=== PATIENT | female | born 2000 | race Caucasian/White ===

== ENCOUNTER 2023-12-13 12:57 | Emergency (ER) | payer OTHER, SELFPAY ==
[2023-12-13 13:07] VITALS: BP 119/74; PULSE 65; RESP 17; TEMP 36.8; O2SAT 100
[2023-12-13 14:33] LABS: Appearance Urine Clear (Clear); Bilirubin Urine Negative (Negative); Blood Urine Negative (Negative); Color Urine Yellow (Yellow); Glucose Urine UA Negative (Negative); Ketones Urine Negative (Negative); Leukocyte Esterase Ur Negative LEU/UL (Negative); Nitrate Urine Negative (Negative); Protein Urine Negative (Negative); Specific Grav Ur 1.009 (1.001-1.035); Urobilinogen Urine 0.2 mg/dL (<2.0); pH Urine 5.5 (5.0-9.0)
[2023-12-13 14:36] LABS: Add Urine Microscopic? NO
[2023-12-13 15:06] LABS: Basophils Percent Auto 0.4 % (0.2-1.2); Eosinophils Absolute Auto 0.1 K/mm3 (0-0.3); Eosinophils Percent Auto 1.4 % (0-4.4); Hemoglobin 13.9 g/dL (12.0-15.0); Immature Granulocyte Absolute 0.03 K/mm3 (0.00-0.031); Immature Granulocyte Percent A 0.4 % (0-0.5); Lymphocytes Absolute Auto 1.22 K/mm3 (0.9-3.2); Lymphocytes Percent Auto 16.8 % (18.3-44.2); Mean Corpuscular HGB Conc 33.9 g/dl (32-36); Mean Corpuscular Hemoglobin 30.7 pg (26-34); Mean Corpuscular Volume 90.5 fl (80-100); Mean Platelet Volume 9.6 fl (7.4-10.4); Monocytes Absolute Auto 0.6 K/mm3 (0.1-0.6); Monocytes Percent Auto 8.5 % (2.6-8.5); Neutrophils Absolute Auto 5.3 K/mm3 (1.3-6.7); Neutrophils Percent Auto 72.5 % (45.5-73.1); Platelet Count Result 189 k/mm3 (150-375); Red Blood Count 4.53 M/mm3 (4.2-5.4); Red Cell Distribution Width 13.1 % (11.5-14.5); White Blood Count 7.3 K/mm3 (4.5-10.0)
[2023-12-13 15:17] LABS: Alanine Aminotransferase 15 U/L (6-35); Albumin Level 4.9 g/dL (3.5-5.1); Alkaline Phosphatase 80 U/L (38-126); Anion Gap 8 mmol/L (4-12); Aspartate Amino Transferase 25 U/L (14-36); Bilirubin,Total 0.5 mg/dL (0.2-1.3); Blood Urea Nitrogen 13 mg/dL (7-17); Calcium 9.9 mg/dL (8.4-10.2); Carbon Dioxide 28 mmol/L (22-30); Chloride 106 mmol/L (98-107); Estimated CRCL calculation 62 ml/min; Estimated Glomerular Filt Rate > 60; Glucose 84 mg/dL (65-110); Potassium 4.1 mmol/L (3.4-5.0); Sodium 142 mmol/L (137-145)
[2023-12-13 15:18] LABS: Lactic Acid Reflex 1.2 mmol/L (0.7-2.0)
[2023-12-13 15:36] VITALS: BP 104/72; PULSE 60; RESP 18; O2SAT 100
--- NOTE | 2023-12-13 15:59 | ED.GENADULT ---
HPI - General Adult General Chief complaint: Skin/Abscess/Foreign Body Stated complaint: foreign body Time Seen by Provider: 12/13/23 13:22 History of Present Illness HPI narrative: Rai Talamantes is a 23 y/o female who presents today with concern that shge might of left a tampon in and she can't get it out. She reports of some suprapubic pain no fevers/chills/ no nausea/vomiting/ She reports maybe a little pain with urination and she noticed some ricardo vaginal d/c Related Data Allergies Allergy/AdvReac Type Severity Reaction Status Date / Time Sulfa (Sulfonamide Allergy Rash Verified 12/13/23 13:08 Antibiotics) Review of Systems Review of Systems: All systems reviewed & are unremarkable except as noted in HPI and below Exam Narrative: GENERAL: Well-appearing, well-nourished, and in no acute distress. HEAD: Normocephalic, atraumatic. EYES: PERRLA and EOMI. ENT: Nares clear, no rhinorrhea or epistaxis. Mucous membranes moist. Oropharynx without tonsillar hypertrophy exudate or other lesions. NECK: Supple. No adenopathy or masses. No carotid bruits or JVD CHEST: Clear to auscultation. No respiratory distress. No wheezes rales or rhonchi HEART: Regular rate and rhythm. No murmur heard. Normal peripheral pulses. ABDOMEN: Soft, nondistended, normal active bowel sounds. + suprapubic pain with palpation EXTREMITIES: Normal range of motion. No edema. SKIN: Warm, dry, no rash. NEURO: No focal deficits. Alert and oriented x3. PSYCH: Normal mood and affect. Course Vital Signs Vital signs: Vital Signs Temperature 36.8 C 12/13/23 13:07 Pulse Rate 65 12/13/23 13:07 Respiratory Rate 17 12/13/23 13:07 Blood Pressure 119/74 12/13/23 13:07 Pulse Oximetry 100 12/13/23 13:07 Temperature 36.8 C 12/13/23 13:07 Pulse Rate 60 12/13/23 15:36 Respiratory Rate 18 12/13/23 15:36 Blood Pressure 104/72 12/13/23 15:36 Pulse Oximetry 100 12/13/23 15:36 Medical Decision Making [facility] Narrative Medical decision making narrative: 23 y/o female who presents with reports of having a tampon left in for at the longest 3 days. Pelvic exam completed with TASHA Rodriguez for systems security analyst, Brown malodorous tampon removed.- Cervix inflamed/ bleeding / dried / flattened With the amount malodorous and suprapubic pain on exam decided to check blood work to r/o toxic shock/ sepsis CBC- within normal no leukocytosis CP- within normal UA - within normal urine preg- Negative GC swabs - pending BV- pending Discussed pt 's case with OB solution design and analysis manager Dr. Briones who recommends starting Flagyl BID / Doxy BID For one week and she can follow up wtih them Patient agrees with plan and all questions answered Medical Records Medical records reviewed: Yes I reviewed the external patient's medical records. Vital Signs Vital Signs: Vital Signs Temperature 36.8 C 12/13/23 13:07 Pulse Rate 65 12/13/23 13:07 Respiratory Rate 17 12/13/23 13:07 Blood Pressure 119/74 12/13/23 13:07 Pulse Oximetry 100 12/13/23 13:07 Temperature 36.8 C 12/13/23 13:07 Pulse Rate 60 12/13/23 15:36 Respiratory Rate 18 12/13/23 15:36 Blood Pressure 104/72 12/13/23 15:36 Pulse Oximetry 100 12/13/23 15:36 Vitals reviewed by me. Lab Data Lab results reviewed: Yes I reviewed the patient's lab results. 12/13/23 14:56 12/13/23 14:56 Labs: Lab Results 12/13/23 12/13/23 Range/Units 14:25 14:56 WBC 7.3 (4.5-10.0) K/mm3 RBC 4.53 (4.2-5.4) M/mm3 Hgb 13.9 (12.0-15.0) g/dL Hct 41.0 (37.0-47.0) % MCV 90.5 (80-100) fl MCH 30.7 (26-34) pg MCHC 33.9 (32-36) g/dl RDW 13.1 (11.5-14.5) % Plt Count 189 (150-375) k/mm3 MPV 9.6 (7.4-10.4) fl Immature Gran % (Auto) 0.4 (0-0.5) % Neut % (Auto) 72.5 (45.5-73.1) % Lymph % (Auto) 16.8 L (18.3-44.2) % [place] % (Auto) 8.5 (2.6-8.5) % Eos % (Auto) 1.4 (0-4.4) % Baso % (Auto) 0.4
[2023-12-13] MEDS: DOXYCYCLINE HYCLATE 100 MG TABLET PO (16:17)
[2023-12-13] MEDS: metroNIDAZOLE 500 MG TABLET PO (16:18)
[2023-12-13 16:32] LABS: Chlamydia trachomatis NOT DETECTED (NOT DETECTE); Neisseria gonorrhoeae PCR NOT DETECTED (NOT DETECTE)
[2023-12-15 15:18] LABS: Bacterial Vaginosis POSITIVE (NEGATIVE)
== END 2023-12-13 16:22 | disposition home or self-care (01) ==
PROVIDERS: Emergency Provider Nurse Practitioner Family
DX: T19.2XXA Foreign body in vulva and vagina, initial encounter (principal); W44.8XXA Other foreign body entering into or through a natural orifice, initial encounter
CPT/HCPCS: 36415; 80053; 81003; 81025; 81513; 83605; 85025; 87491; 87591; 99284; A9270

== ENCOUNTER 2024-04-16 12:02 | Emergency (ER) | payer OTHER, SELFPAY ==
--- NOTE | 2024-04-16 12:04 | ED.FEMALEGU ---
HPI - Female Genitourinary General Chief complaint: Urogenital-Female Stated complaint: Uti Symptoms Time Seen by Provider: 04/16/24 12:04 Source: patient Mode of arrival: ambulatory Limitations: no limitations History of Present Illness HPI Narrative: Rai is a 23-year-old female patient presenting to the clinic today with complaints of possible UTI. She reports she has had burning with urination and increase in frequency and low urine output. States that this has been going on for the past week. Has taken azo had initially at the beginning of the week and this helped her symptoms however now her symptoms have returned. She reports some lower abdominal discomfort/pressure. No flank pain Related Data Home Medications Medication Instructions Recorded Confirmed dextroamphetamine-amphetamine ER 20 mg PO DAILY 04/16/24 04/16/24 20 mg 24hr capsule,extend release hydroxyzine HCl 25 mg tablet 25 mg PO DAILY 04/16/24 04/16/24 Allergies Allergy/AdvReac Type Severity Reaction Status Date / Time Sulfa (Sulfonamide Allergy Rash Verified 04/16/24 12:12 Antibiotics) Review of Systems Review of Systems: Pertinent positives per HPI. Patient denies any fever, chills, rash, headache, visual changes, dizziness, cough, runny nose, sore throat, shortness of breath, chest pain, palpitations, nausea, vomiting, diarrhea, constipation PMFSH Comments At the time of my signature, I reviewed and agree with the nursing past medical, surgical, social, and family history. There is no relevant family history pertinent to the patient complaint. Exam Narrative: General: Well-developed, well nourished, in no apparent distress. Head: Normocephalic, atraumatic. Cardio: Regular rate and rhythm, s1 and s2 normal, no murmur appreciated. Resp: Clear to auscultation bilaterally, no rhonchi, rales, wheezing or rubs. Abdomen: Soft, pliable, bowel sounds present in all quadrants, tender to palpation over the suprapubic bladder, no organomegly, no CVAT tenderness. Course Course Emergency Course: Portions of this record may have been created with voice recognition software. Level of Care: Express Care Visit Vital Signs Vital signs: Vital Signs Temperature 36.9 C 04/16/24 12:12 Pulse Rate 84 04/16/24 12:12 Respiratory Rate 16 04/16/24 12:12 Blood Pressure 105/77 04/16/24 12:12 Pulse Oximetry 100 04/16/24 12:12 Temperature 36.9 C 04/16/24 12:12 Pulse Rate 84 04/16/24 12:12 Respiratory Rate 16 04/16/24 12:12 Blood Pressure 105/77 04/16/24 12:12 Pulse Oximetry 100 04/16/24 12:12 Vital signs reviewed MDM - Female Genitourinary MDM Narrative Medical decision making narrative: At the time of visit patient is resting comfortably on the exam table. Patient appears to be nontoxic. Labs: Urinalysis positive for blood, protein, and leukocytes. We will send for culture. Plan: I suspect patient has UTI. Prescription for cephalexin was sent to the pharmacy. Supportive measures were discussed with the patient and they voiced understanding discharge instructions and agrees to treatment plan. Return precautions reviewed Differential Diagnosis Differential diagnosis: Likely urinary tract infection and cystitis Lab Data Labs: Lab Results 04/16/24 Range/Units 12:15 POC Urine Color Brown POC Urine Clarity Cloudy POC Urine pH 6.5 POC Ur Specif [place] 1.020 POC Urine Protein 3+ POC Ur Glucose (UA) Negative POC Urine Ketones Negative POC Urine Blood 3+ POC Urine Nitrite Negative POC Urine Bilirubin Negative POC Urine Urobilinogen 1.0 POC U Leukocyte Esteras 3+ Misc Test Comment None Discharge Plan Discharge Clinical Impression: Urinary tract infection Patient Disposition: Home, Self-Care Condition: Stable Instructions: Antibiotic Form, Urinary Tract Infection in Women (ED) Additional Instructions: UA positive for ba
[2024-04-16 12:12] VITALS: BP 105/77; PULSE 84; RESP 16; TEMP 36.9; O2SAT 100
[2024-04-16 12:21] LABS: EDUAAPPEAR Cloudy; EDUABILI Negative; EDUABLOOD 3+; EDUACOLOR1 Brown; EDUAGLUCOSE Negative; EDUAKETONE Negative; EDUALEUKO 3+; EDUANITRATE Negative; EDUAPH 6.5; EDUAPROTEIN 3+
== END 2024-04-16 12:25 | disposition home or self-care (01) ==
PROVIDERS: Emergency Provider Nurse Practitioner Family
DX: N39.0 Urinary tract infection, site not specified (principal)
CPT/HCPCS: 81003; 87086; 87088; 99213; G0463

== ENCOUNTER 2024-07-27 17:26 | Emergency (ER) | payer OTHER, SELFPAY ==
--- NOTE | 2024-07-27 17:35 | ED_ITS ---
HPI - General Adult General Chief complaint: Unspecified Stated complaint: BUMP BEHIND EAR Source: patient Mode of arrival: ambulatory Limitations: no limitations History of Present Illness HPI narrative: 23 y/o female presented for c/o 'bump behind right ear.' First noticed one month ago. Denies pain, warmth, or drainage to the bump. States she does not feel like it is changing size, but says her roommate thinks it is bigger. Denies ear pain, drainage, sore throat, n/v/d/f/c or illness. Has multiple earrings but no piercing prior to the onset. Related Data Home Medications Medication Instructions Recorded Confirmed dextroamphetamine-amphetamine ER 20 mg PO DAILY 04/16/24 07/27/24 20 mg 24hr capsule,extend release hydroxyzine HCl 25 mg tablet 25 mg PO DAILY 04/16/24 07/27/24 Allergies Allergy/AdvReac Type Severity Reaction Status Date / Time Sulfa (Sulfonamide Allergy Rash Verified 07/27/24 17:39 Antibiotics) Review of Systems Review of Systems: CONSTITUTIONAL: Denies malaise, chills, or fever. EYES: Denies visual changes, redness, or discharge. ENT: Denies rhinorrhea, congestion, sinus pain, and sore throat. Reports ear node swelling CARDIOVASCULAR: Denies chest pain, palpitations, or edema. RESPIRATORY: Denies cough or dyspnea. SKIN: Denies rash or itching. MUSCULOSKELETAL: Denies myalgia. NEUROLOGIC: Denies headache. All systems reviewed & are unremarkable except as noted in HPI and below PMFSH Comments At time of signature, agree with nursing past medical, surgical, social and family history. There is no relevant family history pertinent to the presenting complaint Exam Narrative: GENERAL: Well-appearing EYES: PERRLA, conjunctivae clear ENT: Nares clear. Mucous membranes moist. Right posterior auricular node noted, mildly swollen, nontender, no erythema to node or mastoid. TMs pearly schulte with dull light reflex bilaterally; no tragal or mastoid tenderness. Oropharynx not erythematous without lesions. NECK: Supple. No lymphadenopathy CHEST: Clear to auscultation, breath sounds equal. HEART: Regular rate and rhythm. SKIN: Warm, dry, no rash. NEURO: Alert and oriented x3. PSYCH: Normal mood and affect Course Course Emergency Course: Patient is aware of diagnosis, understands and agrees to treatment plan. Anticipatory guidance given. Patient agrees to follow-up as directed and is a sen of reasons to seek care at the emergency department. Portions of this record may have been created with voice recognition software Level of Care: Express Care Visit Vital Signs Vital signs: Reviewed Medical Decision Making MDM Narrative Medical decision making narrative: Discussed physical exam findings c/w post auricular lymphadenopathy. Advised supportive measures and signs/symptoms to go to the ER. Patient is appropriate for outpatient treatment and follow-up. Differential Diagnosis Differential Diagnosis: Bacterial lymphadenitis, reactive adenitis, cellulitis, parotitis, lymphangitis, strep pharyngitis, OM, dental infection, lymphoma cat scratch disease? Discharge Plan Discharge Clinical Impression: Subcutaneous nodule of head Patient Disposition: Home, Self-Care Condition: Stable Instructions: Antibiotic Form, Lymphadenopathy (ED) Additional Instructions: Swollen lymph node behind the ear can be caused by Infection, allergic reaction, dental issue, dehydration and other conditions Monitor the site You should go to the ER if the swelling:? * Is accompanied by redness, pain, or drainage? * Is accompanied by other unexplained symptoms like fever, night sweats, or weight loss Follow up with your primary care provider as needed in 1 week Go to the ER for worsening symptoms or concerns? Prescriptions: No Action dextroamphetamine-amphetamine 20 mg capsule,extended release 24hr 20 mg PO DAILY hydroxyzine HCl 25 mg tablet 25 mg PO DAILY cephalexin 500 mg capsule 500 mg PO Q12H 7 Days Qty: 14 0RF Follow-up/Referrals: UNKNOWN,DOCTOR [Primary Care Provider] - Time of Disposition: 17:53
[2024-07-27 17:37] VITALS: BP 117/84; PULSE 89; RESP 16; TEMP 36.8; O2SAT 100
== END 2024-07-27 17:54 | disposition home or self-care (01) ==
PROVIDERS: Emergency Provider Nurse Practitioner Family
DX: R22.0 Localized swelling, mass and lump, head (principal)
CPT/HCPCS: 99212; G0463

== ENCOUNTER 2024-08-04 12:21 | Outpatient (CLI) | payer OTHER, SELFPAY ==
[2024-08-04 12:44] LABS: Basophils Absolute Auto 0.1 K/mm3 (0.0-0.1); Basophils Percent Auto 0.6 % (0.2-1.2); Eosinophils Absolute Auto 0.1 K/mm3 (0-0.3); Eosinophils Percent Auto 1.1 % (0-4.4); Hematocrit 42.2 % (37.0-47.0); Hemoglobin 14.2 g/dL (12.0-15.0); Immature Granulocyte Absolute 0.04 K/mm3 (0.00-0.031); Immature Granulocyte Percent A 0.5 % (0-0.5); Lymphocytes Absolute Auto 1.07 K/mm3 (0.9-3.2); Lymphocytes Percent Auto 12.8 % (18.3-44.2); Mean Corpuscular HGB Conc 33.6 g/dl (32-36); Mean Corpuscular Hemoglobin 30.7 pg (26-34); Mean Corpuscular Volume 91.3 fl (80-100); Mean Platelet Volume 9.5 fl (7.4-10.4); Monocytes Absolute Auto 0.4 K/mm3 (0.1-0.6); Monocytes Percent Auto 4.9 % (2.6-8.5); Neutrophils Absolute Auto 6.7 K/mm3 (1.3-6.7); Neutrophils Percent Auto 80.1 % (45.5-73.1); Platelet Count Result 229 k/mm3 (150-375); Red Blood Count 4.62 M/mm3 (4.2-5.4); Red Cell Distribution Width 13.4 % (11.5-14.5); White Blood Count 8.4 K/mm3 (4.5-10.0)
[2024-08-04 12:55] LABS: Alanine Aminotransferase 13 U/L (6-35); Albumin Level 4.8 g/dL (3.5-5.1); Alkaline Phosphatase 72 U/L (38-126); Anion Gap 4 mmol/L (4-12); Aspartate Amino Transferase 22 U/L (14-36); Bilirubin,Total 0.7 mg/dL (0.2-1.3); Blood Urea Nitrogen 8 mg/dL (7-17); Calcium 9.7 mg/dL (8.4-10.2); Carbon Dioxide 30 mmol/L (22-30); Chloride 106 mmol/L (98-107); Estimated Glomerular Filt Rate > 60; Glucose 124 mg/dL (65-110); Potassium 3.8 mmol/L (3.4-5.0); Sodium 140 mmol/L (137-145)
== END 2024-08-04 12:22 | disposition home or self-care (01) ==
LOC: ANHLAB 12:22
PROVIDERS: Visit Provider Family Medicine
DX: R61 Generalized hyperhidrosis (principal)
CPT/HCPCS: 36415; 80053; 84443; 85025

== ENCOUNTER 2024-08-08 13:41 | Outpatient (CLI) | payer OTHER, SELFPAY ==
--- NOTE | ~2024-08-08 | US_ITS ---
EXAMINATION: US soft tissue head and neck DATE: 08/08/2024 13:54 INDICATION: Enlarged lymph nodes, unspecified. Lump posterior to right ear. TECHNIQUE: Multiple grayscale and Doppler ultrasound images of the head and neck were obtained. COMPARISON: None FINDINGS: There are normal superficial lymph nodes posterior to right ear. IMPRESSION: 1. No abnormal mass or lymphadenopathy. Reviewed, dictated and finalized at location A. ING SUPERVISOR
== END 2024-08-08 13:42 | disposition home or self-care (01) ==
PROVIDERS: PCP Family Medicine; Visit Provider Family Medicine
DX: R59.0 Localized enlarged lymph nodes (principal)
CPT/HCPCS: 76536

== ENCOUNTER 2024-08-25 18:59 | Emergency (ER) | payer OTHER, SELFPAY ==
[2024-08-25 19:08] VITALS: BP 110/63; PULSE 59; RESP 16; TEMP 36.6; O2SAT 100
--- NOTE | 2024-08-25 19:10 | ED_ITS ---
HPI - Female Genitourinary General Chief complaint: Urogenital-Female Stated complaint: uti symptoms Source: patient and RN notes reviewed Mode of arrival: ambulatory Limitations: no limitations History of Present Illness HPI Narrative: 23 y/o female presented for c/o burning and frequency x2 days. Denies hematuria, nausea, vomiting, abdominal pain, flank pain, constipation, diarrhea, fevers or chills. Denies concern for STD or . She has an IUD. Related Data Home Medications ?Medication ?Instructions ?Recorded ?Confirmed ?Last Taken ?Type dextroamphetamine-amphetamine ER 20 mg PO DAILY 04/16/24 08/03/24 Unknown History 20 mg 24hr capsule,extend release dextroamphetamine-amphetamine 10 10 mg PO .PRN PRN 08/03/24 08/03/24 Unknown History mg tablet hydroxyzine HCl 10 mg tablet 10 mg PO ONCE PRN 08/03/24 08/03/24 Unknown History Allergies Allergy/AdvReac Type Severity Reaction Status Date / Time Sulfa (Sulfonamide Allergy Rash Verified 08/25/24 19:11 Antibiotics) Review of Systems Review of Systems: CONSTITUTIONAL: Denies body aches, fever, chills, or sweats. CARDIOVASCULAR: Denies chest pain, palpitations, or edema. RESPIRATORY: Denies cough or dyspnea. GASTROINTESTINAL: Denies abdominal pain, nausea, vomiting, or diarrhea. GENITOURINARY: Reports dysuria, frequency, denies urgency, hematuria, flank pain MUSCULOSKELETAL: Denies back pain or myalgia. [facility] Surgical History Surgical History H/O rhinoplasty Family History Family History Sibling Depression Anxiety Social History Social History Smoking status: Never smoker Alcohol intake: current Drinks per week: 7 Alcohol use details: 5-7 per week Substance use: never Do You Feel Safe in your Home?: Yes Lack of Transportation: No Lack of Food: Never True Current Housing: I Have Housing Concerned About Future Housing: No Difficulty Paying Gas/Electric Bills: No Difficulty Paying for Meds: No Currently Unemployed: No Education: High School Diploma/GED Difficulty w/ Childcare or Family Care: No Occupation/Education: student Comments At time of signature, I have reviewed and agree with nursing past medical, surgical, social and family history unless otherwise noted. Please see nursing chart for further information. There is no relevant family history pertinent to the presenting complaint Exam Narrative: GENERAL: Well-appearing ENT: Mucous membranes pink and moist. NECK: Normal AROM. Supple. CHEST: No respiratory distress. Clear to auscultation. HEART: Regular rate and rhythm. ABDOMEN: Soft, nontender, nondistended, normal active bowel sounds. No CVA tenderness SKIN: Warm, dry, no rash. NEURO: Alert and oriented x3. PSYCH: Normal affect. Course Course Emergency Course: Patient is aware of diagnosis, understands and agrees to treatment plan. Anticipatory guidance given. Patient agrees to follow-up as directed and is aware of reasons to seek care at the emergency department. Portions of this record may have been created with voice recognition software Level of Care: Express Care Visit Vital Signs Vital signs: Vital Signs Temperature 97.8 F 08/25/24 19:08 Pulse Rate 59 L 08/25/24 19:08 Respiratory Rate 16 08/25/24 19:08 Blood Pressure 110/63 08/25/24 19:08 Pulse Oximetry 100 08/25/24 19:08 Temperature 97.8 F 08/25/24 19:08 Pulse Rate 59 L 08/25/24 19:08 Respiratory Rate 16 08/25/24 19:08 Blood Pressure 110/63 08/25/24 19:08 Pulse Oximetry 100 08/25/24 19:08 Reviewed MDM - Female Genitourinary MDM Narrative Medical decision making narrative: Discussed physical exam findings and urine. Advised supportive measures and signs/symptoms to go to the ER. Pt is appropriate for outpt treatment and f/u. Differential Diagnosis Differential diagnosis: Likely urinary tract infection, cystitis and other Discharge Plan Discharge Clinical Impression: Urinary tract infection Patient Disposition: Home, Self-Care Condition: Stable Instructions: Antibiotic Form, Urinary Tract Infection in Women (ED) Additional Instructions: Take the antibiotic as prescribed The urine will be sent of for a culture to identify what type of bacteria is causing your infection. If the culture shows that the antibiotic will not get rid of your infection, you will be notified and a new antibiotic will be called in for you. Increase water intake you will need to follow up with your PCP, call to schedule an appointment. Go to the ER for any worsening symptoms or concerns Patient Language: Hebrew Prescriptions: New nitrofurantoin monohyd/m-cryst [Macrobid] 100 mg capsule 100 mg PO Q12H 5 Days Qty: 10 0RF Rx Instructions: must administer with a meal/food No Action dextroamphetamine-amphetamine 20 mg capsule,extended release 24hr 20 mg PO DAILY dextroamphetamine-amphetamine 10 mg tablet 10 mg PO .PRN PRN hydroxyzine HCl 10 mg tablet 10 mg PO ONCE PRN Follow-up/Referrals: Humberto Polk DO [Primary Care Provider] - Time of Disposition: 19:19
[2024-08-25 19:17] LABS: EDUAAPPEAR Cloudy; EDUABILI Negative (Negative); EDUABLOOD 3+ (Negative); EDUACOLOR1 Light/Pale; EDUAGLUCOSE Negative (Negative); EDUAKETONE Negative (Negative); EDUALEUKO 2+ (Negative); EDUANITRATE Negative (Negative); EDUAPROTEIN Negative (Negative); EDUASPGRAVITY 1.005; EDUAUROBILI 0.2
== END 2024-08-25 19:20 | disposition home or self-care (01) ==
PROVIDERS: Emergency Provider Nurse Practitioner Family; PCP Family Medicine
DX: N39.0 Urinary tract infection, site not specified (principal)
CPT/HCPCS: 81003; 87086; 99213; G0463

== ENCOUNTER 2024-10-26 08:13 | Emergency (ER) | payer OTHER, SELFPAY ==
--- NOTE | ~2024-10-26 | XR_ITS ---
EXAMINATION: XR ankle LT min 3V DATE: 10/26/2024 08:53 INDICATION: Lateral left ankle pain and swelling. Injury. TECHNIQUE: 4 views of left ankle were obtained. COMPARISON: None. FINDINGS: Alignment is normal. No fracture. Joint spaces are normal. IMPRESSION: 1. Normal left ankle. Reviewed, dictated and finalized at location [] CTOR SURGICAL IMPRESSION: 1. Normal left ankle.
--- NOTE | 2024-10-26 08:17 | ED.LOWEXIN ---
HPI - Extremity Injury (Lower) General Chief Complaint: Extremity Injury, Lower Stated Complaint: INJURED L ANKLE Source: patient and RN notes reviewed Mode of arrival: ambulatory Limitations: no limitations History of Present Illness HPI Narrative: Patient is a 24-year-old female who presents to the [facility] with complaints of left lateral ankle pain. Patient states that she was walking her dog on Thursday when she accidentally rolled the ankle. She reports tenderness to the lateral aspect of the left ankle. There is no obvious swelling or deformity. Sensation is intact and she denies numbness. She is neurovascularly intact distally. Related Data Home Medications ?Medication ?Instructions ?Recorded ?Confirmed ?Last Taken ?Type hydroxyzine HCl 10 mg tablet 10 mg PO ONCE PRN 08/03/24 09/20/24 Unknown History Allergies Allergy/AdvReac Type Severity Reaction Status Date / Time Sulfa (Sulfonamide Allergy Rash Verified 10/26/24 08:39 Antibiotics) Review of Systems Review of Systems: CONSTITUTIONAL: Denies fever, chills, or sweats. EYES: Denies visual changes, redness, or discharge. ENT: Denies otalgia and sore throat CARDIOVASCULAR: Denies chest pain, palpitations, or edema. RESPIRATORY: Denies cough or dyspnea. GASTROINTESTINAL: Denies abdominal pain, nausea, vomiting, or diarrhea. GENITOURINARY: Denies dysuria or hematuria. SKIN: Denies rash or itching. MUSCULOSKELETAL: Reports left ankle pain. NEUROLOGIC: Denies headache, numbness, or weakness. Pertinent positives per HPI. [facility] Past Medical History Medical History Controlled substance agreement signed Adderall for ADHD. Signed 08/2024. ADHD Surgical History Surgical History H/O rhinoplasty Family History Family History Sibling Depression Anxiety Social History Social History Smoking status: Never smoker Alcohol intake: current Drinks per week: 7 Alcohol use details: 5-7 per week Substance use: never Do You Feel Safe in your Home?: Yes Lack of Transportation: No Lack of Food: Never True Current Housing: I Have Housing Concerned About Future Housing: No Difficulty Paying Gas/Electric Bills: No Difficulty Paying for Meds: No Currently Unemployed: No Education: High School Diploma/GED Difficulty w/ Childcare or Family Care: No Occupation/Education: student Comments At the time of my signature, I reviewed and agree with the nursing past medical, surgical, social, and family history. There is no relevant family history pertinent to the patient complaint. Exam Narrative: GENERAL: This is a well-nourished, well-developed patient, in no apparent distress. HEAD: normocephalic, atraumatic. EYES: PERRL. Sclera clear/white. Vision is grossly intact. EARS: External ears normal, auditory canals clear and without drainage, TMs normal without perforation. Hearing grossly intact. NOSE: External nose normal with no obvious nasal discharge, nares without redness, no rhinorrhea. THROAT: Mucous membranes moist, posterior pharynx clear. NECK: Neck supple, non-tender without lymphadenopathy, masses or thyromegaly. CARDIOVASCULAR: Regular rate and rhythm without murmurs, gallops, or rubs. RESPIRATORY: Clear to auscultation. Breath sounds equal bilaterally. No wheezes, rales, or rhonchi. GASTROINTESTINAL: Abdomen soft, non-tender, nondistended. Bowel sounds are active. No hepato-splenomegaly, or palpable masses. No guarding. SKIN: warm, intact with no suspicious lesions or rash, good texture and turgor. NEURO: awake, alert, and oriented to person, place and time. There were no obvious focal neurologic abnormalities. EXTREMITIES: No clubbing, cyanosis, or edema. Left lateral ankle tenderness. Distal neuro and motor status intact. Cap refill normal. Pulses normal. BACK: Nontender without deformity or crepitance. No flank tenderness. Course Course Level of Care: Express Care Visit Vital Signs Vital signs: Vital Signs Temperature 98.7 F 10/26/24 08:32 Pulse Rate 90 10/26/24 08:32 Respiratory Rate 16 10/26/24 08:32 Blood Pressure 121/77 10/26/24 08:32 Pulse Oximetry 99 10/26/24 08:32 Oxygen Delivery Room Air 10/26/24 08:32 Temperature 98.7 F 10/26/24 08:32 Pulse Rate 90 10/26/24 08:32 Respiratory Rate 16 10/26/24 08:32 Blood Pressure 121/77 10/26/24 08:32 Pulse Oximetry 99 10/26/24 08:32 Oxygen Delivery Room Air 10/26/24 08:32 Reviewed MDM - Extremity Injury (Lower) MDM Narrative Medical decision making narrative: Use the RICE method at home. May take ibuprofen and/or Tylenol if needed. If symptoms persist in 1 week after conservative treatment, follow-up with specialist. Differential Diagnosis Differential diagnosis: Likely ankle sprain and strain, ankle fracture and other (foot sprain) Imaging Data Attestation: I personally reviewed and interpreted this imaging study as follows: Radiologist's impression: Rapid strep is negative in the office; however we will send to the lab for confirmation; there is a small percentage chance that it can come back positive; if it is, we will call you in 2-3days; and your prescription will be call in to your pharmacy. However, there is NO indication for antibiotic at this time. -Increase your fluids and Vitamin C. -Oral rinses such as: Salt water gargles and/or may use topical anesthetic (eg. Chloraseptic spray) or lozenges to relieve dryness or throat pain. -Take tylenol and ibuprofen as needed for pain and fever as directed. -Frequent hand washing or hand principal technical architect is one of the best ways to prevent spread of infection. -Follow up with primary care provider in 2-3 days if condition is not improving or seek ER visit if your child starts breathing fast/has trouble breathing, is not drinking enough fluids, muffle voice, difficulty opening the mouth or will not wake up or will not interact with you. Critical Care Time Critical Care Time Critical Care Time: No Discharge Plan Discharge Clinical Impression: Left ankle sprain Qualifiers: Encounter type: initial encounter Involved ligament of ankle: unspecified ligament Qualified Code(s): S93.402A - Sprain of unspecified ligament of left ankle, initial encounter Patient Disposition: Home, Self-Care Condition: Stable Instructions: Ankle Sprain (ED), P.R.I.C.E. Treatment (ED) Additional Instructions: Use the RICE method at home. May take ibuprofen and/or Tylenol if needed. If symptoms persist in 1 week after conservative treatment, follow-up with specialist. Patient Language: Portuguese Prescriptions: No Action hydroxyzine HCl 10 mg tablet 10 mg PO ONCE PRN dextroamphetamine-amphetamine 10 mg tablet 10 mg PO DAILY Qty: 30 0RF dextroamphetamine-amphetamine 20 mg capsule,extended release 24hr 20 mg PO QAM Qty: 30 0RF Follow-up/Referrals: Humberto Polk DO [Primary Care Provider] - Time of Disposition: 09:04
[2024-10-26 08:32] VITALS: BP 121/77; PULSE 90; RESP 16; TEMP 37.1; O2SAT 99
== END 2024-10-26 09:05 | disposition home or self-care (01) ==
PROVIDERS: Emergency Provider Nurse Practitioner; PCP Family Medicine
DX: S93.402A Sprain of unspecified ligament of left ankle, initial encounter (principal); X50.0XXA Overexertion from strenuous movement or load, initial encounter; X50.9XXA Other and unspecified overexertion or strenuous movements or postures, initial encounter; Y93.K1 Activity, walking an animal; F90.9 Attention-deficit hyperactivity disorder, unspecified type
CPT/HCPCS: 73610; 99213; G0463

== ENCOUNTER 2025-03-06 10:07 | Emergency (ER) | payer OTHER, SELFPAY ==
[2025-03-06 10:44] VITALS: BP 100/62; PULSE 54; RESP 16; TEMP 36.8; O2SAT 100
[2025-03-06 11:11] LABS: EDUAAPPEAR Clear; EDUABILI Negative (Negative); EDUABLOOD 1+ (Negative); EDUACOLOR1 Light/Pale; EDUAGLUCOSE Negative (Negative); EDUAKETONE Negative (Negative); EDUALEUKO 1+ (Negative); EDUANITRATE Negative (Negative); EDUAPH 5.5; EDUAPROTEIN Negative (Negative); EDUASPGRAVITY 1.005; EDUAUROBILI 0.2
--- NOTE | 2025-03-06 11:15 | ED_ITS ---
HPI - Female Genitourinary General Chief complaint: Urogenital-Female Stated complaint: Uti Symptoms Time Seen by Provider: 03/06/25 11:15 Source: patient, RN notes reviewed and old records reviewed Mode of arrival: ambulatory Limitations: no limitations History of Present Illness HPI Narrative: 24-year-old female presents to the [facility] with urinary frequency, urgency, suprapubic pressure and burning with urination that started this morning, has continued. Patient has an IUD. Denies concerns for . Onset (ago): hour(s) Related Data Home Medications ?Medication ?Instructions ?Recorded ?Confirmed ?Last Taken ?Type hydroxyzine HCl 10 mg tablet 10 mg PO ONCE PRN anxiety 08/03/24 03/06/25 Unknown History Allergies Allergy/AdvReac Type Severity Reaction Status Date / Time Sulfa (Sulfonamide Allergy Rash Verified 03/06/25 10:45 Antibiotics) Review of Systems Review of Systems: All systems reviewed & are unremarkable except as noted in HPI and below Constitutional: Constitutional: Reports no additional constitutional complaints Genitourinary: Genitourinary: Reports as per HPI and Reports dysuria Musculoskeletal: Musculoskeletal: Reports no additional musculoskeletal complaints Integumentary/Breasts: Skin/Breast: Reports system reviewed and no additional complaints, except as docu PMFSH Past Medical History Medical History Controlled substance agreement signed Adderall for ADHD. Signed 08/2024. ADHD Surgical History Surgical History H/O rhinoplasty Family History Family History Sibling Depression Anxiety Social History Social History Smoking status: Never smoker Alcohol intake: current Drinks per week: 7 Alcohol use details: 5-7 per week Substance use: never Do You Feel Safe in your Home?: Yes Lack of Transportation: No Lack of Food: Never True Current Housing: I Have Housing Concerned About Future Housing: No Difficulty Paying Gas/Electric Bills: No Difficulty Paying for Meds: No Currently Unemployed: No Education: High School Diploma/GED Difficulty w/ Childcare or Family Care: No Occupation/Education: student Comments At the time of my signature, I reviewed and agree with the nursing past medical, surgical, social, and family history. There is no relevant family history pertinent to the patient complaint. Exam Const: General: cooperative, healthy appearing, comfortable, no acute distress, well developed, alert and well nourished Nutritional Appearance: well nourished Orientation/consciousness: patient oriented x3 Limitations: no limitations HENMT: Head: normal to inspection Mouth: Yes Normal oral and palatal mucosa present, Yes lip normal, Yes tongue normal and Yes moist mucous membranes Eyes: General: appearance normal, both eyes and all related structures Alignment and Position: alignment normal Neck: Neck: normal visual inspection, full ROM, no lymphadenopathy and no meningeal signs Chest: Chest palpation & inspection: normal inspection of the chest Resp: Effort & Inspection: normal respiratory effort and able to speak in complete sentences Auscultation: clear to auscultation bilaterally, no crackles, no rales, no rhonchi and no wheezes Cardio: Rate: regular rate GI: GI Palp: No abdominal tenderness and Yes Soft to palpation : General: Yes no CVA tenderness Skin: General skin exam: normal color and no rashes or lesions noted Neuro: General: patient oriented x3, gait normal, moves all extremities and no meningeal signs Cognition (Neuro): normal cognition Speech: normal speech Gait exam (Neuro): Normal gait present Extrem: General: normal to inspection, full ROM, capillary refill normal and normal gait Psych: Appearance: grossly normal and well kempt Mental Status: mental status grossly normal Speech and movement: Normal speech and movement present and Clear speech present Affect: normal affect Attitude: cooperative Course Course Level of Care: Express Care Visit Vital Signs Vital signs: Vital Signs Temperature 98.2 F 03/06/25 10:44 Pulse Rate 54 L 03/06/25 10:44 Respiratory Rate 16 03/06/25 10:44 Blood Pressure 100/62 03/06/25 10:44 Pulse Oximetry 100 03/06/25 10:44 Oxygen Delivery Room Air 03/06/25 10:44 Temperature 98.2 F 03/06/25 10:44 Pulse Rate 54 L 03/06/25 10:44 Respiratory Rate 16 03/06/25 10:44 Blood Pressure 100/62 03/06/25 10:44 Pulse Oximetry 100 03/06/25 10:44 Oxygen Delivery Room Air 03/06/25 10:44 Reviewed MDM - Female Genitourinary MDM Narrative Medical decision making narrative: Patient sitting comfortably in exam room. Patient is nontoxic, vitals stable. Patient presents with couple of hours of urinary frequency, urgency and pressure. Patient with +1 leukocytes, positive blood. Will cover for antibiotic for UTI, send for culture Patient appropriate for outpatient treatment with close follow-up Discharge instructions reviewed with patient, as well as provided in writing per nursing staff. The instructions also include specific and strict return/GO TO THE ER as well as f/u information. All questions have been answered, and the patient deny any further questions with discharge and discharge plan. Some parts of this dictation were generated by voice recognition software and may contain typographical and/or grammatical inaccuracies. Differential Diagnosis Differential diagnosis: Likely urinary tract infection, bacterial vaginosis, trichomoniasis and cystitis Lab Data Labs: Lab Results 03/06/25 Range/Units 10:56 POC Urine Color Light/pale POC Urine Clarity Clear POC Urine pH 5.5 POC Ur Specif [place] 1.005 POC Urine Protein Negative (Negative) POC Ur Glucose (UA) Negative (Negative) POC Urine Ketones Negative (Negative) POC Urine Blood 1+ (Negative) POC Urine Nitrite Negative (Negative) POC Urine Bilirubin Negative (Negative) POC Urine Urobilinogen 0.2 POC U Leukocyte Esteras 1+ (Negative) Reviewed Critical Care Time Critical Care Time Critical Care Time: No Discharge Plan Discharge Clinical Impression: Urinary tract infection Qualifiers: Urinary tract infection type: acute cystitis Hematuria presence: with hematuria Qualified Code(s): N30.01 - Acute cystitis with hematuria Patient Disposition: Home Condition: Stable Instructions: Antibiotic Form, Urinary Tract Infection in Women (ED) Additional Instructions: Increased water intake Take Tylenol as needed for pain Take antibiotic as prescribed Today your urine dip showed a probability of a UTI. You have been prescribed an antibiotic. Your urine will be sent to our lab for a culture. If at that time a bacteria grows that is not covered by the antibiotic prescribed you will be notified. Follow-up with primary care For new or worsening symptoms go directly to the emergency room Patient Language: [place] Prescriptions: New amoxicillin-pot clavulanate 875-125 mg tablet 1 tablet PO Q12H Qty: 10 0RF No Action hydroxyzine HCl 10 mg tablet 10 mg PO ONCE PRN (Reason: anxiety) tretinoin 0.025 % cream 1 applic topical QHS Qty: 45 0RF Rx Instructions: Apply to acne lesions once daily before bedtime or in the evening. dextroamphetamine-amphetamine 20 mg capsule,extended release 24hr 20 mg PO QAM Qty: 30 0RF dextroamphetamine-amphetamine 10 mg tablet 10 mg PO DAILY Qty: 30 0RF Follow-up/Referrals: Humberto Polk DO [Primary Care Provider] - 1 Week (express care follow up ) Stand Alone Forms: Work/School Release IP Time of Disposition: 11:22
== END 2025-03-06 11:36 | disposition home or self-care (01) ==
PROVIDERS: Emergency Provider Nurse Practitioner; PCP Family Medicine
DX: N30.01 Acute cystitis with hematuria (principal); F90.9 Attention-deficit hyperactivity disorder, unspecified type
CPT/HCPCS: 81003; 87086; 99213; G0463

== ENCOUNTER 2025-07-04 09:23 | Outpatient (CLI) | payer OTHER, SELFPAY ==
--- NOTE | ~2025-07-04 | CT_ITS ---
EXAM/PROCEDURE: CT sinus wo con HISTORY: Chronic sinusitis COMPARISON: None available. TECHNIQUE: Paranasal sinus CT FINDINGS: In the dependent portion of the right maxillary sinus a 2.9 x 2.2 x 2.1 cm mucocele mucous retention cyst is present. The remainder of the right maxillary sinus, as well as the left maxillary sinus, frontal sinuses, sphenoid sinuses, and equally air cells are all fully aerated. No air-fluid levels. Nasal septum is midline. Ostiomeatal complexes are patent bilaterally. Nasal turbinates appear within normal limits. Mastoid air cells and middle ear cavities are also fully aerated bilaterally. Bones and soft tissues in the paranasal region are unremarkable. IMPRESSION: 2.9 cm mucocele or mucous retention cyst in the right maxillary sinus. The paranasal sinuses otherwise are clear. Reviewed, dictated and finalized at location A. 411 DIRECTORY ASSISTANCE OPERATOR IMPRESSION: 2.9 cm mucocele or mucous retention cyst in the right maxillary sinus. The para nasal sinuses otherwise are clear.
== END 2025-07-04 09:24 | disposition home or self-care (01) ==
LOC: MICIMG 09:24
PROVIDERS: PCP Family Medicine; Visit Provider Otolaryngology
DX: J32.9 Chronic sinusitis, unspecified (principal)
CPT/HCPCS: 70486